=== PATIENT | male | born 1990 | race Caucasian/White ===

== ENCOUNTER 2022-04-08 20:56 | Emergency (ER) | payer SELFPAY ==
[2022-04-08 21:00] VITALS: BP 143/84; PULSE 100; RESP 16; TEMP 36.9; O2SAT 98; BMI 32.5
--- NOTE | 2022-04-08 21:25 | ED.C_ITS ---
Documented by User: Ranjan Bass MD 04/16/22 21:06 HPI - Psych General: Chief Complaint: Psychiatric Symptoms Stated Complaint: MHE Time Seen by Provider: 04/08/22 21:05 History of Present Illness: Mr. Dominguez is a 31-year-old gentleman with reported history of bipolar disorder who has not been on medications since greater than 10 years ago presenting to the emergency department due to worsening psychiatric symptoms. He reports increased social stressors including the of family member approximately 6 months ago and since that time has had worsening psychiatric symptoms. He endorses this is gotten to the point that he is unable to function. He endorses some days feeling very manic and other days feeling depressed and suicidal. When he is manic he feels confrontational and is concerned that he is going to hurt somebody else. Intensity symptoms is severe. Course is worsened. No other specific changes in health, exacerbating, or alleviating factors identified. Reports previously being on Abilify and Depakote, unsure about Depakote but did have therapeutic benefit from Abilify. Onset (ago): month(s) Duration: getting worse History of same: Yes Context: not taking psychiatric medications and significant life stressor Associated psychiatric symptoms: depression, suicidal ideation, homicidal ideation, racing thoughts and other Review of Systems General: Reports: 10 or more systems reviewed and unremarkable except in HPI and below PFSH ED PFSH: Medical History (Updated 04/14/22 @ 16:36 by Janeth Nunez) Bipolar 1 disorder Psychiatric care Social History (Updated 04/08/22 @ 21:41 by Ranjan Bass MD) Smoking and tobacco status: current every day smoker Alcohol intake: current Physical Exam Const: COMMON NORMALS: alert GENERAL APPEARANCE: cooperative and well developed HENMT: COMMON NORMALS: normocephalic and atraumatic HEAD & SCALP: normocephalic and atraumatic Eye: COMMON NORMALS: conjunctivae normal CONJUNCTIVA: Yes conjunctivae normal SCLERA: sclerae normal Neck/C-Spine: COMMON NORMALS: supple GENERAL: Yes trachea midline Resp: COMMON NORMALS: clear to auscultation bilaterally EFFORT & INSPECTION: Yes able to speak in complete sentences AUSCULTATION: clear to auscultation bilaterally Cardio: COMMON NORMALS: regular rate and regular rhythm RATE: regular rate RHYTHM: regular rhythm GI: COMMON NORMALS: Soft to palpation PALPATION: Yes Soft to palpation and No Tenderness to palpation present (GI) Extremity: GENERAL: Yes normal exam except as noted and No edema Neuro: COMMON NORMALS: moves all extremities SENSORIUM/ORIENTATION: Yes alert and No Orientation impaired Psych: COMMON NORMALS: mental status grossly normal and Normal thought process present THOUGHT PROCESS: Normal thought process present Course Vital Signs: Vital signs: Vital Signs Temperature 98.5 F 04/08/22 21:00 Pulse Rate 100 04/08/22 21:00 Respiratory Rate 16 04/08/22 21:00 Blood Pressure 143/84 04/08/22 21:00 Pulse Oximetry 98 04/08/22 21:00 Oxygen Delivery Me thod 04/08/22 21:00 MDM - Psych Medical Decision Making 31-year-old gentleman with history of bipolar disorder presenting due to worsening psychiatric symptoms not currently on medications. Psychiatric symptoms have progressed to the point of being severe and inhibit daily functioning. Patient is nontoxic on clinical exam, vitals are satisfactory, denies medical complaints. There is no evidence of injury on exam. Laboratory studies reviewed, no significant hematologic or metabolic abnormalities. TSH is normal. Urinalysis is not concerning for urinary tract infection. Toxic ingestions negative. Urine drug screen positive for cocaine and THC. COVID is negative. Based on clinical history provided as well as exam there is no indication for imaging. Given the patient's history of worsening symptoms in addition to increased social stressors and concern over SI/HI with profound mood swings it is reasonable to pursue inpatient management as the patient expresses that he is unlikely to start treatment in the outpatient setting. I did clarify and the patient will follow-up on outpatient treatment once stabilized in the inpatient setting however just struggles with motivation when he is feeling the way that he feels. Based on ED evaluation at this point there is no obvious condition that would preclude the patient from inpatient management. As of this evening we do not have male bed availability for inpatient psychiatric care and therefore will look for transfer. Handed off to Dr. Grier pending outside transfer versus psychiatry service consult. Medical Records I reviewed the patient's medical records. Lab Data I reviewed the patient's lab results. : 04/08/22 21:42 04/08/22 21:42 Laboratory Results WBC 9.9 10^3/uL (4.0-10.0) 04/08/22 21:42 RBC 5.08 10^6/uL (4.1-5.3) 04/08/22 21:42 Hgb 15.7 g/dL (11.7-16.6) 04/08/22 21:42 Hct 45.9 % (42.0-52.0) 04/08/22 21:42 MCV 90.4 fl (80-94) 04/08/22 21:42 MCH 30.9 pg (28.0-34.0) 04/08/22 21:42 MCHC 34.2 g/dL (30.0-36.0) 04/08/22 21:42 RDW 11.3 % (12.1-15.1) L 04/08/22 21:42 Plt Count 369 10^3/cmm (130-400) 04/08/22 21:42 MPV 9.9 fL (7.4-10.4) 04/08/22 21:42 Neut % (Auto) 60.0 % 04/08/22 21:42 Lymph % (Auto) 28.3 % 04/08/22 21:42 Hendricks % (Auto) 9.6 % 04/08/22 21:42 Eos % (Auto) 1.4 % 04/08/22 21:42 Baso % (Auto) 0.4 % 04/08/22 21:42 Neut # (Auto) 5.97 10^3/uL (1.8-7.7) 04/08/22 21:42 Lymph # (Auto) 2.8 10^3/uL (0.8-4.8) 04/08/22 21:42 Hendricks # (Auto) 1.0 10^3/uL (0.2-0.9) H 04/08/22 21:42 Eos # (Auto) 0.1 10^3/uL (0.0-0.8) 04/08/22 21:42 Baso # (Auto) 0.0 10^3/uL (0.0-0.1) 04/08/22 21:42 Nucleated RBC % (auto) 0 % 04/08/22 21:42 Nucleated RBCs # 0.0 /100WBC 04/08/22 21:42 Sodium 139 mmol/L (136-145) 04/08/22 21:42 Potassium 3.9 mmol/L (3.5-5.1) 04/08/22 21:42 Chloride 102 mmol/L (98-107) 04/08/22 21:42 Carbon Dioxide 23 mmol/L (22-29) 04/08/22 21:42 Anion Gap 17.9 (5-19) 04/08/22 21:42 BUN 17 mg/dL (6-20) 04/08/22 21:42 Creatinine 1.1 mg/dL (0.7-1.2) 04/08/22 21:42 GFR Calculation 79.1 mL/min (90-130) L 04/08/22 21:42 Glucose 112 mg/dL (65-115) 04/08/22 21:42 Calculated Osmolality 290 mOsm/kg (285-295) 04/08/22 21:42 Calcium 8.9 mg/dL (8.5-10.5) 04/08/22 21:42 Total Bilirubin 0.2 mg/dL (0.15-1.2) 04/08/22 21:42 AST 27 U/L (0-40) 04/08/22 21:42 ALT 68 U/L (0-41) H 04/08/22 21:42 Alkaline Phosphatase 91 U/L (40-130) 04/08/22 21:42 Total Protein 7.1 g/dL (6.6-8.7) 04/08/22 21:42 Albumin 4.5 g/dL (3.5-5.2) 04/08/22 21:42 Globulin 2.6 g/dL (1.3-4.6) 04/08/22 21:42 TSH 2.05 uIU/mL (0.27-4.20) 04/08/22 21:42 Urine Color Yellow (Yellow) 04/08/22 21:31 Urine Appearance Clear (CLEAR) 04/08/22 21: Urine pH 5 (5-7) 04/08/22 21: Ur Specific Douglas 1.025 (1.005-1.030) 04/08/22 21: Urine Protein Neg (Negative) 04/08/22 21:31 Urine Glucose (UA) Norm (Normal) 04/08/22 21: Urine Ketones Negative (Negative) 04/08/22 21: Urine Blood Neg (Negative) 04/08/22 21:31 Urine Nitrate Negative (Negative) 04/08/22 21:31 Urine Bilirubin Neg (Negative) 04/08/22 21:31 Urine Urobilinogen Norm mg/dL (Negative) 04/08/22 21:31 Ur Leukocyte Esterase Negative (Negative) 04/08/22 21:31 Salicylates < 0.3 mg/dL (3-10) L 04/08/22 21:42 Urine Opiates Screen Negative ng/mL (Negative) 04/08/22 21:31 Acetaminophen < 5.0 ug/mL (10-30) L 04/08/22 21:42 Ur Barbiturates Screen Negative ng/mL (Negative) 04/08/22 21:31 Ur Phencyclidine Scrn Negative ng/mL (Negative) 04/08/22 21:31 Ur Amphetamines Screen Negative ng/mL (Negative) 04/08/22 21:31 U Benzodiazepines Scrn Negative ng/mL (Negative) 04/08/22 21:31 Urine Cocaine Screen Positive ng/mL (Negative) H 04/08/22 21:31 U Marijuana (THC) Screen Positive ng/mL (Negative) H 04/08/22 21:31 Ethyl Alcohol < 10 mg/dL (0-10) 04/08/22 21:42 SARS-CoV-2 Ag (Rapid) negative (Negative) 04/08/22 21:53 Discharge Plan Discharge Patient Disposition: Home Clinical Impression: Bipolar 1 disorder Condition: Stable Discharge Orders: Discharge ED (Routine); Ordered 04/09/22 Ordered By: Rahul Grier Referrals: [facility], [Staff Physician] - 1-3 days Activity Restrictions/Additional Instructions: Call the behavioral health clinic on Monday, or go in as a walk-in. They will triage you, and begin the evaluation process. If at any point you become suicidal, wish to harm your self, or have specific thoughts about harming others, return to the emergency department. Coding Level of Care Code ED Website Project Manager for [employer] Exam Comprehensive Documented by User: Rahul Grier, DO 04/09/22 03:33 HPI - Psych General: Chief Complaint: Psychiatric Symptoms Stated Complaint: MHE Time Seen by Provider: 04/08/22 21:05 [facility] ED PFSH: Medical History (Updated 04/14/22 @ 16:36 by Janeth Nunez) Bipolar 1 disorder Psychiatric care Social History (Updated 04/08/22 @ 21:41 by Ranjan Bass MD) Smoking and tobacco status: current every day smoker Alcohol intake: current Course Vital Signs: Vital signs: Vital Signs Temperature 98.5 F 04/08/22 21:00 Pulse Rate 100 04/08/22 21:00 Respiratory Rate 16 04/08/22 21:00 Blood Pressure 143/84 04/08/22 21:00 Pulse Oximetry 98 04/08/22 21:00 Oxygen Delivery Me thod 04/08/22 21:00 MDM - Psych Medical Decision Making 31-year-old gentleman with history of bipolar disorder presenting due to worsening psychiatric symptoms not currently on medications. Psychiatric symptoms have progressed to the point of being severe and inhibit daily functioning. Patient is nontoxic on clinical exam, vitals are satisfactory, denies medical complaints. There is no evidence of injury on exam. Laboratory studies reviewed, no significant hematologic or metabolic abnormalities. TSH is normal. Urinalysis is not concerning for urinary tract infection. Toxic ingestions negative. Urine drug screen positive for cocaine and THC. COVID is negative. Based on clinical history provided as well as exam there is no indication for imaging. Given the patient's history of worsening symptoms in addition to increased social stressors and concern over SI/HI with profound mood swings it is reasonable to pursue inpatient management as the patient expresses that he is unlikely to start treatment in the outpatient setting. I did clarify and the patient will follow-up on outpatient treatment once stabilized in the inpatient setting however just struggles with motivation when he is feeling the way that he feels. Based on ED evaluation at this point there is no obvious condition that would preclude the patient from inpatient management. As of this evening we do not have male bed availability for inpatient psychiatric care and therefore will look for transfer. Handed off to Dr. Grier pending outside transfer versus psychiatry service consult 1:07 AM spoke with psychiatry. Given this patient's lack a plan of homicidality or suicidality, and duration of symptoms for quite some time, he will be referred for outpatient management. We will have him present to the walk-in clinic at [facility] for triage. The patient is actually requesting this now given the fact that we have no beds available at this facility, and that he would have to be transferred more than an hour away for evaluation and treatment. Lab Data : 04/08/22 21:42 04/08/22 21:42 Laboratory Results WBC 9.9 10^3/uL (4.0-10.0) 04/08/22 21: RBC 5.08 10^6/uL (4.1-5.3) 04/08/22 21:42 Hgb 15.7 g/dL (11.7-16.6) 04/08/22 21: Hct 45.9 % (42.0-52.0) 04/08/22 21: MCV 90.4 fl (80-94) 04/08/22 21: MCH 30.9 pg (28.0-34.0) 04/08/22 21: MCHC 34.2 g/dL (30.0-36.0) 04/08/22 21:42 RDW 11.3 % (12.1-15.1) L 04/08/22 21:42 Plt Count 369 10^3/cmm (130-400) 04/08/22 21:42 MPV 9.9 fL (7.4-10.4) 04/08/22 21:42 Neut % (Auto) 60.0 % 04/08/22 21: Lymph % (Auto) 28.3 % 04/08/22 21:42 Hendricks % (Auto) 9.6 % 04/08/22 21:42 Eos % (Auto) 1.4 % 04/08/22 21:42 Baso % (Auto) 0.4 % 04/08/22:42 Neut # (Auto) 5.97 10^3/uL (1.8-7.7) 04/08/22 21:42 Lymph # (Auto) 2.8 10^3/uL (0.8-4.8) 04/08/22 21:42 Hendricks # (Auto) 1.0 10^3/uL (0.2-0.9) H 04/08/22 21:42 Eos # (Auto) 0.1 10^3/uL (0.0-0.8) 04/08/22 21:42 Baso # (Auto) 0.0 10^3/uL (0.0-0.1) 04/08/22 21:42 Nucleated RBC % (auto) 0 % 04/08/22 21:42 Nucleated RBCs # 0.0 /100WBC 04/08/22 21:42 Sodium 139 mmol/L (136-145) 04/08/22 21:42 Potassium 3.9 mmol/L (3.5-5.1) 04/08/22 21:42 Chloride 102 mmol/L (98-107) 04/08/22 21:42 Carbon Dioxide 23 mmol/L (22-29) 04/08/22 21:42 Anion Gap 17.9 (5-19) 04/08/22 21:42 BUN 17 mg/dL (6-20) 04/08/22 21:42 Creatinine 1.1 mg/dL (0.7-1.2) 04/08/22 21:42 GFR Calculation 79.1 mL/min (90-130) L 04/08/22 21:42 Glucose 112 mg/dL (65-115) 04/08/22 21:42 Calculated Osmolality 290 mOsm/kg (285-295) 04/08/22 21:42 Calcium 8.9 mg/dL (8.5-10.5) 04/08/22 21:42 Total Bilirubin 0.2 mg/dL (0.15-1.2) 04/08/22 21:42 AST 27 U/L (0-40) 04/08/22 21:42 ALT 68 U/L (0-41) H 04/08/22 21:42 Alkaline Phosphatase 91 U/L (40-130) 04/08/22 21:42 Total Protein 7.1 g/dL (6.6-8.7) 04/08/22 21:42 Albumin 4.5 g/dL (3.5-5.2) 04/08/22 21:42 Globulin 2.6 g/dL (1.3-4.6) 04/08/22 21:42 TSH 2.05 uIU/mL (0.27-4.20) 04/08/22 21:42 Urine Color Yellow (Yellow) 11/04/22 21:31 Urine Appearance Clear (CLEAR) 04/08/22 21:31 Urine pH 5 (5-7) 04/08/22 21:31 Ur Specific Douglas 1.025 (1.005-1.030) 04/08/22 21:31 Urine Protein Neg (Negative) 04/08/22 21:31 Urine Glucose (UA) Norm (Normal) 04/08/22 21:31 Urine Ketones Negative (Negative) 04/08/22 21: Urine Blood Neg (Negative) 04/08/22 21:31 Urine Nitrate Negative (Negative) 04/08/22 21: Urine Bilirubin Neg (Negative) 04/08/22 21: Urine Urobilinogen Norm mg/dL (Negative) 04/08/22 21: Ur Leukocyte Esterase Negative (Negative) 04/08/22 21:31 Salicylates < 0.3 mg/dL (3-10) L 04/08/22 21:42 Urine Opiates Screen Negative ng/mL (Negative) 04/08/22 21: Acetaminophen < 5.0 ug/mL (10-30) L 04/08/22 21:42 Ur Barbiturates Screen Negative ng/mL (Negative) 04/08/22 21:31 Ur Phencyclidine Scrn Negative ng/mL (Negative) 04/08/22 21:31 Ur Amphetamines Screen Negative ng/mL (Negative) 04/08/22 21:31 U Benzodiazepines Scrn Negative ng/mL (Negative) 04/08/22 21:31 Urine Cocaine Screen Positive ng/mL (Negative) H 04/08/22 21:31 U Marijuana (THC) Screen Positive ng/mL (Negative) H 04/08/22 21:31 Ethyl Alcohol < 10 mg/dL (0-10) 04/08/22 21:42 SARS-CoV-2 Ag (Rapid) negative (Negative) 04/08/22 21:53 Discharge Plan Discharge Patient Disposition: Home Clinical Impression: Bipolar 1 disorder Condition: Stable Discharge Orders: Discharge ED (Routine); Ordered 04/09/22 Ordered By: Rahul Grier Referrals: [facility], [Staff Physician] - 1-3 days Activity Restrictions/Additional Instructions: Call the behavioral health clinic on Monday, or go in as a walk-in. They will triage you, and begin the evaluation process. If at any point you become suicidal, wish to harm your self, or have specific thoughts about harming others, return to the emergency department. Coding Level of Care Code ED Website Project Manager for David Cervantes Exam Comprehensive
--- NOTE | 2022-04-08 21:37 | ECG_ITS ---
[facility] Test Date: 2022-04-08 Pat Name: Teddy Dominguez Department: Room: Gender: Male Uke Driver: : 1990 Requested By: Ranjan Bass Order Number: [id number] Martines MD: Alyssa Brewer M.D. Measurements Intervals [place] Rate: 74 P: 48 TN: 147 QRS: 77 QRSD: 101 T: -17 QT: 358 QTc: 398 Interpretive Statements SINUS RHYTHM NONSPECIFIC T-WAVE ABNORMALITY No previous ECG available for comparison Electronically Signed On 04-09-2022 10:51:29 CDT by Alyssa Brewer M.D. [email or web address]
[2022-04-08 21:51] LABS: Add Urine Microscopic? NO; Charge for UA Resulting for Rev
[2022-04-08 21:55] LABS: Basophils % 0.4 %; Eosinophils # 0.1 10^3/uL (0.0-0.8); Eosinophils % 1.4 %; Hematocrit 45.9 % (42.0-52.0); Hemoglobin 15.7 g/dL (11.7-16.6); Lymphocytes # 2.8 10^3/uL (0.8-4.8); Lymphocytes % 28.3 %; Mean Corpuscular HGB Conc 34.2 g/dL (30.0-36.0); Mean Corpuscular Hemoglobin 30.9 pg (28.0-34.0); Mean Corpuscular Volume 90.4 fl (80-94); Mean Platelet Volume 9.9 fL (7.4-10.4); Monocytes % 9.6 %; Neutrophils # 5.97 10^3/uL (1.8-7.7); Nucleated Red Blood Cells % 0 %; Platelet Count 369 10^3/cmm (130-400); Red Blood Count 5.08 10^6/uL (4.1-5.3); Red Cell Distribution Width 11.3 % (12.1-15.1); White Blood Count 9.9 10^3/uL (4.0-10.0)
[2022-04-08 22:03] LABS: Bilirubin Urine Neg (Negative); Blood Urine Neg (Negative); Glucose Urine UA Norm (Normal); Ketones Urine Negative (Negative); Leukocyte Esterase Urine Negative (Negative); Nitrate Urine Negative (Negative); Protein Urine Neg (Negative); Specific Gravity, Urine 1.025 (1.005-1.030); Urine Appearance Clear (CLEAR); Urine Color Yellow (Yellow); Urobilinogen Urine Norm (Negative); pH Urine 5 (5-7)
[2022-04-08] MEDS: LORazepam 1 mg Tablet PO (22:05)
[2022-04-08 22:11] LABS: Amphetamines Screen Urine Negative (Negative); Barbiturates Screen Urine Negative (Negative); Benzodiazepines Screen Urine Negative (Negative); Cocaine Screen Urine Positive (Negative); Opiate Screen Urine Negative (Negative); PCP Screen Urine Negative (Negative); THC Screen Urine Positive (Negative)
[2022-04-08 22:20] LABS: SARS Covid-2 Antigen negative (Negative)
[2022-04-08 22:21] LABS: Alanine Aminotransferase 68 U/L (0-41); Albumin Level 4.5 g/dL (3.5-5.2); Alkaline Phosphatase 91 U/L (40-130); Anion Gap 17.9 (5-19); Aspartate Amino Transferase 27 U/L (0-40); Blood Urea Nitrogen 17 mg/dL (6-20); Calcium 8.9 mg/dL (8.5-10.5); Carbon Dioxide 23 mmol/L (22-29); Chloride 102 mmol/L (98-107); Globulin 2.6 g/dL (1.3-4.6); Glomerular Filtration Rate 79.1 mL/min (90-130); Glucose 112 mg/dL (65-115); Osmolality Calculated 290 mOsm/kg (285-295); Potassium 3.9 mmol/L (3.5-5.1); Sodium 139 mmol/L (136-145); Thyroid Stimulating Hormone 2.05 uIU/mL (0.27-4.20); Total Bilirubin 0.2 mg/dL (0.15-1.2); Total Protein 7.1 g/dL (6.6-8.7)
[2022-04-08 22:22] LABS: Acetaminophen < 5.0 ug/mL (10-30); Alcohol Level < 10 mg/dL (0-10); Salicylate < 0.3 mg/dL (3-10)
== END 2022-04-09 01:28 | disposition home or self-care (01) ==
PROVIDERS: Emergency Medicine; Emergency Provider Emergency Medicine
DX: F31.9 Bipolar disorder, unspecified (principal); F17.200 Nicotine dependence, unspecified, uncomplicated; F14.90 Cocaine use, unspecified, uncomplicated; F12.90 Cannabis use, unspecified, uncomplicated; R45.851 Suicidal ideations; R45.850 Homicidal ideations
CPT/HCPCS: 80053; 80306; 80307; 81003; 84443; 85025; 87426; 93005; 99284